=== PATIENT | male | born 1990 | race Caucasian/White ===

== ENCOUNTER 2017-12-15 09:40 | Emergency (ER) | payer MEDICAID ==
[~2017-12-15] VITALS: Ht 182.9 cm; Wt 86.0 kg
[2017-12-15 09:57] VITALS: BP 118/67
[2017-12-15] MEDS ORDERED: triamcinolone acetonide 40mg/ml inj IM ONE (10:40)
[2017-12-15] MEDS ORDERED: KEN0.1O TP (10:41)
== END 2017-12-15 11:18 | disposition home or self-care (01) ==
LOC: ER 09:40
DX: L25.9 Unspecified contact dermatitis, unspecified cause (principal)
CPT/HCPCS: 96372; 99283; J3301